=== PATIENT | male | born 1945 | race Caucasian/White ===

== ENCOUNTER 2019-05-26 19:23 | Emergency (ER) | payer MEDICARE, OTHER ==
[2019-05-26] MEDS ORDERED: diphenhydrAMINE 25 MG Cap PO ONE (19:57)
--- NOTE | 2019-05-26 20:03 | EDM.PDOC ---
ED HPI GENERAL MEDICAL PROBLEM - General Chief Complaint: Eye Problems Stated Complaint: STUNG IN LEFT EYE BY HORNET Time Seen by Provider: 05/26/19 19:45 Source of Information: Reports: Patient History Limitations: Reports: No Limitations - History of Present Illness INITIAL COMMENTS - FREE TEXT/NARRATIVE: 74 yo male presents about an hour after being stung by a hornet in the left lower quadrant of his eyeball. His vision in normal. No self tx prior to arrival. Denies any difficulty breathing or swallowing or hives. Is here with his . Onset: Today Onset Date: 05/26/19 Onset Time: 19:00 Duration: Hour(s): (1), Constant Location: Reports: Face (L eye) Quality: Reports: Dull Severity: Mild Improves with: Reports: None Worsens with: Reports: None Context: Reports: Other (sting) Associated Symptoms: Reports: No Other Symptoms Treatments [facility] [employer] [facility]: Reports: Other (see below) (none) - Related Data Allergies Allergy/AdvReac Type Severity Reaction Status Date / Time fish derived Allergy unknown Verified 02/24/15 10:18 Penicillins Allergy unkown Verified 02/24/15 10:18 ED ROS GENERAL - Review of Systems Review Of Systems: See Below Constitutional: Reports: No Symptoms HEENT: Reports: Eye Pain (mild, left). Denies: Vision Change Respiratory: Reports: No Symptoms Cardiovascular: Reports: No Symptoms Skin: Reports: No Symptoms Neurological: Reports: No Symptoms ED EXAM GENERAL W FULL EYE - Physical Exam Exam: See Below Exam Limited By: No Limitations General Appearance: Alert, WD/WN, No Apparent Distress Eye Exam: Left Eye: Conjunctival Injection, Bilateral Eye: EOMI, PERRL Eyelids: Bilateral: Normal Appearance Conjunctiva & Sclera: Left: Injected Extraocular Movements: Bilateral: Intact Pupils: Normal Accommodation Pupillary Size: Bilateral: 3 mm Ears: Normal External Exam, Normal Canal, Hearing Grossly Normal Nose: Normal Inspection, No Blood Throat/Mouth: Normal Inspection, Normal Lips, Normal Oropharynx, Normal Voice, No Airway Compromise Head: Atraumatic, Normocephalic Neck: Normal Inspection Respiratory/Chest: No Respiratory Distress, Lungs Clear, Normal Breath Sounds, No Accessory Muscle Use Cardiovascular: Regular Rate, Rhythm, No Edema Neurological: Alert, Oriented, CN II-XII Intact, Normal Cognition, No Motor/ Sensory Deficits Psychiatric: Normal Affect, Normal Mood Skin Exam: Warm, Dry, Intact, Normal Color, No Rash Course - Vital Signs Last Recorded V/S: Last Vital Signs Temp 36.5 C 05/26/19 19:43 Pulse 60 05/26/19 19:43 Resp 16 05/26/19 19:43 BP 159/81 H 05/26/19 19:43 Pulse Ox 98 05/26/19 19:43 - Orders/Labs/Meds Orders: Active Orders 24 hr Category Date Time Status diphenhydrAMINE [Benadryl] Med 05/26/19 19:57 Once 50 mg PO ONETIME ONE Departure - Departure Time of Disposition: 20:10 Disposition: Home, Self-Care 01 Condition: Good Clinical Impression: Bee sting Qualifiers: Encounter type: initial encounter Injury intent: accidental or unintentional Qualified Code(s): T63.441A - Toxic effect of venom of bees, accidental ( unintentional), initial encounter - Discharge Information *PRESCRIPTION DRUG MONITORING PROGRAM REVIEWED*: No *COPY OF PRESCRIPTION DRUG MONITORING REPORT IN PATIENT DINH: No Referrals: PCP,None [Primary Care Provider] - Additional Instructions: Diphenhydramine 50 mg every 4-6 hrs for itching/redness. Use Visine A eye drops per package instructions until your redness resolves. Return if your vision decreases in that eye. - My Orders Last 24 Hours: My Active Orders 05/26/19 19:57 diphenhydrAMINE [Benadryl] 50 mg PO ONETIME ONE - Assessment/Plan Last 24 Hours: My Active Orders 05/26/19 19:57 diphenhydrAMINE [Benadryl] 50 mg PO ONETIME ONE
== END 2019-05-26 20:18 | disposition home or self-care (01) ==
LOC: JP.ED 19:23
DX: T63.441A Toxic effect of venom of bees, accidental (unintentional), initial encounter (principal); Z88.0 Allergy status to penicillin; Z91.013 Allergy to seafood
CPT/HCPCS: 99282; A9270